=== PATIENT | female | born 1990 | race African-American/Black ===

== ENCOUNTER 2023-08-10 11:18 | Emergency (ER) | payer OTHER, BC ==
[2023-08-10 11:48] VITALS: BP 128/82; PULSE 83; RESP 18; TEMP 98.6; BMI 21.3
[2023-08-10] MEDS ORDERED: KETOROLAC TROMETHAMINE 15 MG/ML VIAL ONE (13:55)
[2023-08-10] MEDS: KETOROLAC TROMETHAMINE 15 MG/ML VIAL IM ONE (13:59)
== END 2023-08-10 16:54 | disposition home or self-care (01) ==
LOC: JER 11:18
PROC: 3E0233Z Introduction of Anti-inflammatory into Muscle, Percutaneous Approach (ICD-10-PCS; principal; 2023-08-10)
DX: M54.6 Pain in thoracic spine (principal); V49.40XA Driver injured in collision with unspecified motor vehicles in traffic accident, initial encounter; Y92.410 Unspecified street and highway as the place of occurrence of the external cause
CPT/HCPCS: 72128-TC; 99284-25